=== PATIENT | female | born 1975 | race Caucasian/White ===

== ENCOUNTER 2018-08-17 13:10 | Emergency (ER) | payer SELFPAY ==
[~2018-08-17] VITALS: Ht 172.7 cm; Wt 97.5 kg
--- NOTE | 2018-08-17 13:10 | NUR ---
PATIENT BIBA TO BED 10 AT THIS TIME.
[2018-08-17 13:17] VITALS: BP 125/78
--- NOTE | 2018-08-17 13:20 | NUR ---
BIBA FOR ALLERGIC REACTION TO CEPHALEXIN, PT HAD ONSET OF SOB, TROUBLE SWALLOWING AND REDNESS NOTED TO CHEST AREA 30MIN AFTER TAKING NEW MEDICATION. PT ON ARRIVAL IS 98% RA, RR EVEN AND UNLABORED, NO ANGIO EDMA NOTED.PT SITTING IN BED, IN NO RESPIRATORY DISTRESS. ER MD AWARE OF PT STATUS.
[2018-08-17] MEDS ORDERED: hydrOXYzine HCL 25 MG TAB PO ONE (13:40)
[2018-08-17] MEDS ORDERED: CLINDAMYCIN 900 MG in DEXTROSE 5% 100 ML IV ONE (13:40)
[2018-08-17] MEDS ORDERED: methylPREDNISolone SS 125 MG/2 ML VIAL IVP ONE (13:40)
[2018-08-17] MEDS ORDERED: ALBUTEROL 0.083% 2.5 MG/3 ML NEBU INH ONE (13:40)
--- NOTE | 2018-08-17 13:43 | NUR ---
PT SITTING IN BED, VSS, PT VISITING WITH FAMILY AT BEDSIDE.
--- NOTE | 2018-08-17 13:58 | NUR ---
RT AT BEDSIDE FOR TX.
--- NOTE | 2018-08-17 14:16 | NUR ---
PT TO XRAY VIA WHEELCHAIR.
[2018-08-17] MEDS ORDERED: CLINDAMYCIN 900 MG/6 ML VIAL IV ONE (14:21)
[2018-08-17 14:35] LABS: BASOPHILS % (AUTO) 0.4 % (0.0-2.0); EOSINOPHILS # (AUTO) 0.1 K/uL (0-0.4); EOSINOPHILS % (AUTO) 0.8 % (0.0-4.0); HEMATOCRIT 38.9 % (36-48); HEMOGLOBIN 12.9 g/dL (12.0-16.0); LYMPHOCYTES # (AUTO) 1.4 K/uL (2.5-16.5); LYMPHOCYTES % (AUTO) 16.1 % (20.5-51.1); MEAN CORPUSCULAR HEMOGLOBIN 27 pg (27-31); MEAN CORPUSCULAR HGB CONC 33 g/dL (33-37); MEAN CORPUSCULAR VOLUME 82.7 fL (80-94); MONOCYTES # (AUTO) 0.5 K/uL (0.8-1.0); MONOCYTES % (AUTO) 5.8 % (1.7-9.3); NEUTROPHILS # (AUTO) 6.7 K/uL (1.8-7.7); NEUTROPHILS % (AUTO) 76.9 % (42.2-75.2); PLATELET COUNT (AUTO) 270 K/uL (140-450); RED CELL DISTRIBUTION WIDTH 13.9 % (11.6-13.7); WHITE BLOOD COUNT (AUTO) 8.7 K/uL (4.8-10.8)
--- NOTE | 2018-08-17 14:40 | NUR ---
pt states she is feeling better and feels like she can swallow again with out difficulty, vss,
[2018-08-17 14:49] LABS: ANION GAP 18.4 (8-16); CARBON DIOXIDE 22.3 mmol/L (21-32); CREATININE 0.8 mg/dL (0.6-1.3); POTASSIUM 3.7 mmol/L (3.5-5.1)
[2018-08-17 14:52] LABS: PROTHROMBIN TIME 9.9 secs (10.8-13.4)
[2018-08-17 14:55] LABS: ALBUMIN 4.1 g/dL (3.4-5.0); TOTAL BILIRUBIN 1.2 mg/dL (0.0-1.0)
--- NOTE | 2018-08-17 15:59 | NUR ---
Patient discharged with v/s stable. Written and verbal after care instructions given and explained. Patient alert, oriented and verbalized understanding of instructions. Ambulatory with steady gait. All questions addressed prior to discharge. ID band removed. Patient advised to follow up with PMD. Rx of atarax, clindamycin given. Patient educated on indication of medication including possible reaction and side effects. Opportunity to ask questions provided and answered.
[2018-08-17 16:02] VITALS: BP 125/78
== END 2018-08-17 15:59 | disposition home or self-care (01) ==
LOC: MED 13:10
DX: K91.89 Other postprocedural complications and disorders of digestive system (principal); R13.10 Dysphagia, unspecified; F41.0 Panic disorder [episodic paroxysmal anxiety]; Z88.1 Allergy status to other antibiotic agents
CPT/HCPCS: 36415; 70360; 71045; 80053; 81025; 83735; 83880; 84484; 85025; 85610; 85730; 93005; 96365; 96375; 99284; J2930; J3490; J7613